=== PATIENT | female | born 1975 | race Caucasian/White ===

== ENCOUNTER 2018-03-11 08:00 | Day surgery (SDC) | payer MEDICAID ==
[2018-03-11] MEDS ORDERED: CEFAZOLIN 2 GM/50 ML (PMX) 50 ML IVPB (10:00)
[2018-03-11] MEDS ORDERED: MIDAZOLAM 1 MG/ML 2 ML INJ (10:37)
[2018-03-11] MEDS ORDERED: CEFAZOLIN 1 GM INJ ×2 (10:37→12:50)
[2018-03-11] MEDS ORDERED: PROPOFOL 20 ML (10:37)
[2018-03-11] MEDS ORDERED: LIDOCAINE 2% (SDV) 5 ML INJ (10:37)
[2018-03-11] MEDS ORDERED: FENTAnyl 50 MCG/ML VIAL (10:37)
[2018-03-11] MEDS: SOD CHLORIDE 0.9% 1,000 ML IV (10:40)
[2018-03-11] MEDS ORDERED: METOCLOPRAMIDE 10 MG INJ IV (12:30)
[2018-03-11] MEDS ORDERED: MEPERIDINE 25 MG INJ IV (12:30)
[2018-03-11] MEDS ORDERED: ONDANSETRON 4 MG INJ IV (12:30)
[2018-03-11] MEDS ORDERED: FENTAnyl 50 MCG/ML VIAL IV ×3 (12:30)
[2018-03-11] MEDS ORDERED: OXYCODONE/ACETAMINOPHEN (5/325) TAB PO ×2 (12:30)
[2018-03-11] MEDS ORDERED: DEXAMETHASONE 4 MG/ML 1 ML INJ (12:44)
[2018-03-11] MEDS ORDERED: METOCLOPRAMIDE 10 MG INJ (12:44)
[2018-03-11] MEDS ORDERED: ONDANSETRON 4 MG INJ (12:44)
[2018-03-11] MEDS ORDERED: FAMOTIDINE 20 MG INJ (12:44)
[2018-03-11] MEDS ORDERED: SUCCINYLCHOLINE CHLORIDE 100 MG/5 ML SYG IV (12:50)
[2018-03-11] MEDS ORDERED: HYDROCODONE/APAP (7.5/325) TAB PO (13:30)
== END 2018-03-11 15:10 | disposition home or self-care (01) ==
LOC: SDS 08:00
DX: N60.31 Fibrosclerosis of right breast (principal)
CPT/HCPCS: 19301; 84703; 88307